=== PATIENT | female | born 1990 | race Caucasian/White ===

== ENCOUNTER 2018-11-23 20:40 | Outpatient (CLI) | payer OTHER ==
[~2018-11-23] VITALS: Ht 160 cm; Wt 101.9 kg
[2018-11-23 21:06] VITALS: BP 111/63; PULSE 104; RESP 18; Ht 160 cm; Wt 101.9 kg
[2018-11-23] MEDS ORDERED: NPH,100I5 SQ (21:23)
[2018-11-23] MEDS ORDERED: FER325 PO (21:23)
[2018-11-23] MEDS ORDERED: PREN-93 PO (21:23)
[2018-11-23] MEDS ORDERED: ONDANSETRON 4 MG INJ IV STA (21:49)
[2018-11-23] MEDS ORDERED: LACTATED RINGER'S 1,000 ML IV SCH (22:00)
[2018-11-23] MEDS ORDERED: LACTATED RINGER'S 1,000 ML IV ONE (22:00)
[2018-11-23] MEDS ORDERED: ACETAMINOPHEN 1000MG/100ML IV 100 ML IVPB ONE (22:00)
[2018-11-24] MEDS ORDERED: ACET500C5 PO (05:31)
[2018-11-24] MEDS ORDERED: METO10TA92 PO (05:31)
--- NOTE | 2018-11-24 07:22 | PN ---
Triage Information Date/Time Late entry note for November 23, 2018 Reason for visit: Weeks of Gestation 25 weeks and 3 days /Para 3 para 2 Diabetes: none Hypertention: none Additional information 28-year-old G3, P2 with IUP at 25 weeks and 3 days presents with complaint of nausea and vomiting, headache since 4 hours ago prior to [facility]. She denies any fever, chills, leaking of fluid, vaginal bleeding, decreased movement. Past medical history significant for history of type 2 diabetes currently on insulin for management of diabetes during . She denies any fever or chills. She reports history of migraine headache in the past but had not reported any migraine headache for a long time. Patient received IV Tylenol in triage and still complaining of persistent headache with some vision changes. She denies right upper quadrant pain or epigastric pain. Denies any history of hypertension urine . Blood pressure during monitoring in triage had been all normal range. Objective Vital Signs Date Temp Pulse Resp B/P (MAP) Pulse Ox O2 O2 Flow FiO2 Time Delivery Rate 11/23/18 99.5 104 18 111/63 Room Air 21:06 (79) Heart Rate: 130's Heart Rate Comments Appropriate for gestational age and category 1 No contraction on the monitor Exam VS - Last 72 Hours, by Label Date Temp Pulse Resp B/P (MAP) Pulse Ox O2 O2 Flow FiO2 Time Delivery Rate 11/23/18 99.5 104 18 111/63 Room Air 21:06 (79) Laboratory Tests Test 11/23/18 22:25 11/24/18 00:10 White Blood Count 14.3 H Red Blood Count 4.28 Hemoglobin 12.6 Hematocrit 35.6 L Mean Corpuscular Volume 83.2 Mean Corpuscular Hemoglobin 29.4 Mean Corpuscular Hemoglobin Concent 35.4 Red Cell Distribution Width 12.6 Platelet Count 329 Mean Platelet Volume 10.2 Immature Granulocytes % 0.400 Neutrophils % 87.7 H Lymphocytes % 8.8 L Monocytes % 3.0 Eosinophils % 0.0 Basophils % 0.1 Nucleated Red Blood Cells % 0.0 Immature Granulocytes # 0.060 H Neutrophils # 12.5 H Lymphocytes # 1.3 Monocytes # 0.4 Eosinophils # 0.0 Basophils # 0.0 Nucleated Red Blood Cells # 0.0 Sodium Level 138 Potassium Level 3.2 L Chloride Level 105 Carbon Dioxide Level 20 L Anion Gap 13 Blood Urea Nitrogen 11 Creatinine 0.32 L Est Glomerular Filtrat Rate mL/min > 60 Glucose Level 131 Hemoglobin A1c 7.8 H Calcium Level 9.1 Total Bilirubin 0.3 Direct Bilirubin 0.00 Indirect Bilirubin 0.3 Aspartate Amino Transf (AST/SGOT) 15 Alanine Aminotransferase (ALT/SGPT) 9 L Alkaline Phosphatase 90 Total Protein 7.1 Albumin 3.8 Globulin 3.30 H Albumin/Globulin Ratio 1.15 Urine Color YELLOW Urine Clarity SLIGHTLY CLOUDY A Urine pH 5.0 Urine Specific [place] 1.032 H Urine Ketones 2+ H Urine Nitrite NEGATIVE Urine Bilirubin NEGATIVE Urine Urobilinogen NEGATIVE Urine Leukocyte Esterase NEGATIVE Urine Microscopic RBC 1 Urine Microscopic WBC 2 Urine Squamous Epithelial Cells FEW Urine Bacteria FEW A Urine Mucus FEW A Urine Hemoglobin NEGATIVE Urine Glucose 1+ H Urine Total Protein 1+ H Appearance: Alert and oriented x4 appears to be in moderate to severe distress. Abdomen: Soft, gravid, fundal height consider gestational age, no tenderness, no rebound tenderness, no guarding, no rigidity NST: Appropriate for gestational age and category 1 Neuro exam: Examination of all 12 cranial nerves within normal limits Results/Medications Result Diagram: 11/23/18222411/23/182224 Results 24 hrs Laboratory Tests Test 11/23/18 22:25 11/24/18 00:10 White Blood Count 14.3 H Red Blood Count 4.28 Hemoglobin 12.6 Hematocrit 35.6 L Mean Corpuscular Volume 83.2 Mean Corpuscular Hemoglobin 29.4 Mean Corpuscular Hemoglobin Concent 35.4 Red Cell Distribution Width 12.6 Platelet Count 329 Mean Platelet Volume 10.2 Immature Granulocytes % 0.400 Neutrophils % 87.7 H Lymphocytes % 8.8 L Monocytes % 3.0 Eosinophils % 0.0 Basophils % 0.1 Nucleated Red Blood Cells % 0.0 Immature Granulocytes # 0.060 H Neutrophils # 12.5 H Lymphocytes # 1.3 Monocytes # 0.4 Eosinophils # 0.0 Basophils # 0.0 Nucleated Red Blood Cells # 0.0 Sodium Level 138 Potassium Level 3.2 L Chloride Level 105 Carbon Dioxide Level 20 L Anion Gap 13 Blood Urea Nitrogen 11 Creatinine 0.32 L Est Glomerular Filtrat Rate mL/min > 60 Glucose Level 131 Hemoglobin A1c 7.8 H Calcium Level 9.1 Total Bilirubin 0.3 Direct Bilirubin 0.00 Indirect Bilirubin 0.3 Aspartate Amino Transf (AST/SGOT) 15 Alanine Aminotransferase (ALT/SGPT) 9 L Alkaline Phosphatase 90 Total Protein 7.1 Albumin 3.8 Globulin 3.30 H Albumin/Globulin Ratio 1.15 Urine Color YELLOW Urine Clarity SLIGHTLY CLOUDY A Urine pH 5.0 Urine Specific [place] 1.032 H Urine Ketones 2+ H Urine Nitrite NEGATIVE Urine Bilirubin NEGATIVE Urine Urobilinogen NEGATIVE Urine Leukocyte Esterase NEGATIVE Urine Microscopic RBC 1 Urine Microscopic WBC 2 Urine Squamous Epithelial Cells FEW Urine Bacteria FEW A Urine Mucus FEW A Urine Hemoglobin NEGATIVE Urine Glucose 1+ H Urine Total Protein 1+ H Disposition: Discharge Assessment/Plan 28-year-old with IUP at 25 weeks and 3 days Persistent headache, associated with nausea and vomiting, no obstetrical problem at this point No evidence of PIH Nausea and vomiting , resolved with antiemetic Headache persistent and severe, no neurological symptoms, headache persistent although the patient received IV Tylenol and hydration Patient will be sent to emergency room for further evaluation Patient has been monitored with serial blood pressure check. Blood pressures during monitoring are all normal range. Patient discharged to emergency room for evaluation. Discussed with the patient if discharged from the emergency room to be seen by her primary OB within 24 to 48 hours after discharge from the hospital Strict labor precautions discussed with the patient as well as kick count and follow-up for her OB appointments discussed. Patient verbalized understanding. All questions were answered to patient's best satisfaction ODLAYS ZAMORA MD November 24, 2018 07:22
== END 2018-11-24 01:18 | disposition home or self-care (01) ==
LOC: OBT 20:40 → L-D 20:42 → OBT 11-24 01:18
PROVIDERS: ATTEND Specialist
DX: O26.892 Other specified pregnancy related conditions, second trimester (principal); R51 Headache; O21.9 Vomiting of pregnancy, unspecified; O24.912 Unspecified diabetes mellitus in pregnancy, second trimester; Z79.4 Long term (current) use of insulin; Z3A.25 25 weeks gestation of pregnancy
CPT/HCPCS: 36415; 76815; 76817; 80053; 81001; 83036; 85025; 96360; 96361; J0131; J2405; J7120; Z7500; Z7610; G0463

== ENCOUNTER 2018-11-24 01:24 | Emergency (ER) | payer OTHER ==
[~2018-11-24] VITALS: Ht 160 cm; Wt 102.3 kg
[~2018-11-24 01:24] MED LIST: FER325 PO; NPH,100I5 SQ; PREN-93 PO
[2018-11-24 01:29] VITALS: Ht 160 cm; Wt 102.3 kg
[2018-11-24] MEDS ORDERED: SOD CHLORIDE 0.9% 1,000 ML IV STA (02:45)
[2018-11-24] MEDS ORDERED: METOCLOPRAMIDE 10 MG INJ IV STA (02:45)
[2018-11-24] MEDS ORDERED: ACETAMINOPHEN 500 MG TAB PO STA (04:28)
[2018-11-24 04:43] VITALS: BP 116/54; PULSE 98; RESP 18
[2018-11-24] MEDS ORDERED: ACET500C5 PO (05:31)
[2018-11-24] MEDS ORDERED: METO10TA92 PO (05:31)
--- NOTE | 2018-11-24 08:00 | ERD ---
ER Documentation Chief Complaint Chief Complaint abd pain/nv x 1 day, states 25 weeks . came from ob HPI Patient is a 28-year-old female with PMHX of DM Type 2, insulin dependent, G3, P 2, approximately 25 weeks , presents ER for concerns of headache, nausea and vomiting which started 4 hours prior to arrival. Patient was referred to the ER by [facility] Dr. Bernard as her headache persisted after undergoing OB work- up. Patient states her current pain level is a 7 out of 10. She states the pain to be throughout her head. Patient states she has had migraine headaches in the past however this one is lasting longer. She denies any fevers, chills, photophobia, phonophobia, blurry vision, unilateral weakness, slurred speech, difficulty ambulating. Patient denies any chest pain or shortness of breath. Patient denied falls or trauma. Patient denies any abdominal pain, pelvic pain, fluid loss, vaginal bleeding, changes in movement. Patient denies any URI like symptoms at this time. Patient denies any UTI symptoms. Patient states her OBGYN is Dr. Pina. ROS All systems reviewed and are negative except as per history of present illness. Medications Home Meds Active Scripts Metoclopramide* (Reglan*) 10 Mg Tablet, 10 MG PO Q6 PRN for NAUSEA AND/OR VO MITING, #10 TAB Prov:AGUEDA HOSKINS PA-C 11/24/18 Acetaminophen* (Tylophen*) 500 Mg Capsule, 1 CAP PO Q6H PRN for PAIN AND OR ELEVATED TEMP, #20 CAP Prov:AGUEDA HOSKINS PA-C 11/24/18 Reported Medications NPH, Human Insulin Isophane (Humulin N Kwikpen) 100 Unit/1 Ml Insuln.pen, 1 UNIT SQ, EA 11/23/18 Ferrous Sulfate* (Ferrous Sulfate*) 325 Mg Tabec, 325 MG PO DAILY, TAB 11/23/18 Vit No.124/Iron/FA ( Vitamin Tablet) 1 Each Tablet, 1 EACH PO, TAB 11/23/18 Allergies Allergies: Coded Allergies: No Known Allergy (Unverified , 11/23/18) PMhx/Soc Medical and Surgical Hx: pt denies Medical Hx History of Surgery: Yes (C SECTION) Hx Alcohol Use: No Hx Substance Use: No Hx Tobacco Use: No Smoking Status: Never smoker FmHx Family History: No diabetes, No coronary disease, No other Physical Exam Vitals Vital Signs Date Temp Pulse Resp B/P (MAP) Pulse Ox O2 O2 Flow FiO2 Time Delivery Rate 11/24/18 98.9 98 18 116/54 98 Room Air 04:43 (74) 11/24/18 99.4 102 20 147/80 97 01:29 (102) Physical Exam GENERAL: Well-developed, well-nourished female. Appears in no acute distress. Speaking in full sentences. HEAD/FACE: Normocephalic, atraumatic. No deformities or ecchymosis. No facial asymmetry. EYE: Pupils equal, round, and reactive to light. EOMs intact. No conjunctival erythema. No eye discharge. ENT: External ear without any masses or tenderness. Auditory canals clear bilaterally. TM visualized bilaterally, non-erythematous, non-bulging. Nasal mucosa pink with no discharge. Oropharynx is pink without any tonsillar erythema or exudates. No uvula deviation. No kissing tonsils. NECK: Supple. No meningismus. Normal ROM of the neck. LUNG: Clear to auscultation bilaterally. No rhonchi, wheezing, rales or coarse breath sounds. HEART: Regular rate and rhythm. No murmurs, rubs or gallops. ABDOMEN: Gravid abdomen. EXTREMITIES: Equal pulses bilaterally. No peripheral clubbing, cyanosis or edema. No unilateral leg swelling. NEUROLOGIC: Alert and oriented x3, cooperative. Mood and affect appropriate to situation. Cranial nerves II through XII are grossly intact. Normal speech. Motor exam: 5/5 strength in upper and lower extremities. Sensory exam: Sensation intact to light touch on all four extremities. Cerebellar function exam: Rapid alternating movements intact. Steady gait. No pronator drift. SKIN: Normal color. Warm and dry. No rashes or lesions. Results 24 hrs Laboratory Tests Test 11/24/18 04:06 11/24/18 05:27 Urine Color YELLOW Urine Clarity SLIGHTLY CLOUDY Urine pH 5.0 Urine Specific [place] 1.026 Urine Ketones 2+ mg/dL Urine Nitrite NEGATIVE mg/dL Urine Bilirubin NEGATIVE mg/dL Urine Urobilinogen NEGATIVE mg/dL Urine Leukocyte Esterase NEGATIVE [place]/ul Urine Microscopic RBC 1 /HPF Urine Microscopic WBC 2 /HPF Urine Squamous Epithelial Cells FEW /HPF Urine Hemoglobin NEGATIVE mg/dL Urine Glucose 3+ mg/dL Urine Total Protein 1+ mg/dl Bedside Glucose 171 mg/dL Current Medications Medications Dose Sig/Liz Start Time Status Last (Trade) Ordered Route PRN Stop Time Admin Dose Reason Admin Sodium 1,000 ml @ Q1H STAT 11/24/18 DC 11/24/18 Chloride 1,000 mls/hr IV 02:45 11/24/18 02:45 04:40 10 mg ONCE STAT 11/24/18 DC 11/24/18 Metoclopramid IV 02:45 11/24/18 04:08 e HCl 02:47 (Reglan) 500 mg ONCE STAT 11/24/18 DC 11/24/18 Acetaminophen PO 04:28 11/24/18 04:39 (Tylenol 04:29 Tab) Procedures/MDM Review of the patient's medical records show the patient was seen on OB for prior ER arrival. On OB floor patient had blood work and UA obtained. CBC showed a WBC count of 14.3. Hemoglobin and hematocrit within normal limits. Elevated WBC count likely due to recent vomiting and state. CMP showed no severe electrolyte abnormalities except for glucose of 131, potassium 3.2, bicarb of 20, creatinine 1.32. AST noted to be 15, ALT of 9. Hemoglobin A1c was noted to be 7.8. UA did show 2+ ketones, 3+ glucose and 1+ protein. Patient was given Zofran IV, Tylenol IV, and Lactated Ringer's on OB floor. Limited OB US showed single live intrauterine gestation andd 1. The MVP is 7 cm. 2. The cervix is closed and measures 4 cm. Patient arrived to the ED with IV in place. MEDICAL DECISION MAKING: Patient is a 28-year-old female, G3, P2, presents the ER for concerns of a headache, nausea and vomiting which started prior to arrival seen and evaluated by [facility] [employer] team given that patient was patient was above 20 weeks . Patient was referred to the ER by OBGYN Dr. Bernard as her headache persisted. Patient does have a history of migraines. Vital signs were reviewed. Patient was afebrile. Patient was not hypoxic. Initial pulse was noted to be 102 bpm. Initial BP was noted to be 147/80. Patient's neuro exam was completely normal. Patient had no focal neurological deficits. Low suspicion for TIA or CVA at this time. As discussed above. I did review the patient's blood work which was obtained prior to ER arrival. Patient's CBC did show slightly elevated WBC count. Likely due to recent vomiting in state. No evidence of severe anemia. Patient did not require blood transfusion. CMP did show slightly decreased potassium of 3.2. Patient was encouraged to eat bananas which will correct her slight hypokalemia. Patient's glucose was noted to be 131 on OB floor patient's bicarb was and then 171 here in the ER. Patient's bicarb was noted to be 20. Patient did have 2+ ketones in her urine however there is no signs of DKA at this time. UA also showed 1+ glucose and 1+ protein. Patient was advised to continue strict DM medication compliance. I did speak with DAMASO PhillipsDebby, who stated that she does not have concerns for an OB related emergencies at this time including preclampsia and eclampsia. Patient was given Tylenol p.o. here in the ER given the previous dose was over 5 hours ago. Patient was also given Reglan. Upon reexamination, patient reported improvement in symptoms. Given state and associated risks of CT imaging, CT brain was deferred as patient had improvement in symptoms. Patient was advised to follow-up with her [employer] Dr. Pina in the next 1 to 2 days. Patient was agreeable with this plan. At this time, patient presentation is most consistent with headache, nausea and vomiting in the setting of . Low suspicion for intra encephalitis, meningitis, cranial hemorrhage, this TIA, CVA, temporal arteritis, benign intracranial hypertension, intracranial mass, glaucoma, sinusitis, ACS, DKA or sepsis. Patient's vital signs were reassessed and were WNL prior to discharge. Patient was nontoxic, non-ill appearing prior to discharge with steady gait. PRESCRIPTIONS: Tylenol, Reglan DISCHARGE: At this time, patient is stable for discharge and outpatient management. I have encouraged the patient to hydrate well. I have instructed the patient to follow- up with his/her primary care physician in 1-2 days. If symptoms persist, patient may need to see a specialist for further examinations and testing. I have instructed the patient to promptly return to the ER at any time for any new or worsening symptoms including increased increased pain, fever, nausea, vomiting, numbness, neck stiffness, visual changes, weakness or LOC. The patient and/or family expressed understanding of and agreement with this plan. All questions were answered. Home care instructions were provided. Disclaimer: Inadvertent spelling and grammatical errors are likely due to EHR/dictation software use and do not reflect on the overall quality of patient care. Also, please note that the electronic time recorded on this note does not necessarily reflect the actual time of the patient encounter. Departure Diagnosis: Primary Impression: Headache Headache type: unspecified Headache chronicity pattern: unspecified pattern Intractability: not intractable Qualified Codes: R51 - Headache Additional Impressions: Weeks of gestation: unspecified Qualified Codes: Z34.90 - Encounter for supervision of normal , unspecified, unspecified trimester Diabetes in Diabetes in type: unspecified Trimester: unspecified trimester Qualified Codes: O24.919 - Unspecified diabetes mellitus in , unspecified trimester Condition: Fair Patient Instructions: Self-Care for Headaches Referrals: [facility] YOU HAVE RECEIVED A MEDICAL SCREENING EXAM AND THE RESULTS INDICATE THAT YOU DO NOT HAVE A CONDITION THAT REQUIRES URGENT TREATMENT IN THE EMERGENCY DEPARTMENT. FURTHER EVALUATION AND TREATMENT OF YOUR CONDITION CAN WAIT UNTIL YOU ARE SEEN IN YOUR DOCTORS OFFICE WITHIN THE NEXT 1-2 DAYS. IT IS YOUR RESPONSIBILITY TO MAKE AN APPOINTMENT FOR FOLOW-UP CARE. IF YOU HAVE A PRIMARY DOCTOR --you should call your primary doctor and schedule an appointment IF YOU DO NOT HAVE A PRIMARY DOCTOR YOU CAN CALL OUR PHYSICIAN REFERRAL HOTLINE AT IF YOU CAN NOT AFFORD TO SEE A PHYSICIAN YOU CAN CHOSE FROM THE FOLLOWING [facility] [address] [facility]. [facility] [address] [facility] [address] [facility] [facility] [address] [facility]. [facility] [address] [facility]. [facility]. [address] [facility] YOU HAVE RECEIVED A MEDICAL SCREENING EXAM AND THE RESULTS INDICATE THAT YOU DO NOT HAVE A CONDITION THAT REQUIRES URGENT TREATMENT IN THE EMERGENCY DEPARTMENT. FURTHER EVALUATION AND TREATMENT OF YOUR CONDITION CAN WAIT UNTIL YOU ARE SEEN IN YOUR DOCTORS OFFICE WITHIN THE NEXT 1-2 DAYS. IT IS YOUR RESPONSIBILITY TO MAKE AN APPOINTMENT FOR FOLOW-UP CARE. IF YOU HAVE A PRIMARY DOCTOR --you should call your primary doctor and schedule and appointment IF YOU DO NOT HAVE A PRIMARY DOCTOR YOU CAN CALL OUR PHYSICIAN REFERRAL HOTLINE AT . IF YOU CAN NOT AFFORD TO SEE A PHYSICIAN YOU CAN CHOSE FROM THE FOLLOWING [facility] IN[facility]UTIONS: [facility] [address] [place] [address] [facility] [address] [place] [address] [facility] [address] [place] [address] Additional Instructions: Follow-up with your [employer] [employer] Dr. Pina. Call your primary care doctor TOMORROW for an appointment during the next 1-2 days.See the doctor sooner or return here if your condition worsens before your appointment time. AGUEDA HOSKINS PA-C November 24, 2018 07:50
== END 2018-11-24 05:43 | disposition home or self-care (01) ==
LOC: FTE 01:24
DX: O26.892 Other specified pregnancy related conditions, second trimester (principal); R51 Headache; O24.112 Pre-existing type 2 diabetes mellitus, in pregnancy, second trimester; E11.9 Type 2 diabetes mellitus without complications; Z3A.25 25 weeks gestation of pregnancy; Z79.4 Long term (current) use of insulin
CPT/HCPCS: 81001; 82962; 96374; J2765; J7030; Z7502; Z7610

== ENCOUNTER 2019-02-23 05:39 | Inpatient (IN) | payer OTHER ==
[~2019-02-23] VITALS: Ht 162.6 cm; Wt 109.1 kg
[~2019-02-23 05:39] MED LIST changes: +ACET500C5 PO; +METO10TA92 PO
[2019-02-23] MEDS ORDERED: MISOPROSTOL 200 MCG TAB PR PRN ×2 (06:00→08:00)
[2019-02-23] MEDS ORDERED: OXYTOCIN 30 UNITS/LR 500 ML IV SCH (06:00)
[2019-02-23] MEDS ORDERED: CARBOPROST 250 MCG INJ IM PRN (06:00)
[2019-02-23] MEDS ORDERED: AMPICILLIN 2 GM/NS (PMX) 100 ML IV SCH (06:00)
[2019-02-23] MEDS ORDERED: OXYTOCIN 30 UNITS/LR 500 ML IV PRN (06:00)
[2019-02-23] MEDS ORDERED: METHYLERGONOVINE 0.2 MG INJ IM PRN (06:00)
[2019-02-23 06:20] VITALS: Ht 162.6 cm; Wt 109.1 kg
[2019-02-23] MEDS: LACTATED RINGER'S 1,000 ML IV SCH ×2 (06:44→15:33)
[2019-02-23] MEDS ORDERED: CEFAZOLIN 2 GM/50 ML (PMX) 50 ML IVPB SCH (07:00)
[2019-02-23] MEDS ORDERED: LACTATED RINGER'S 1,000 ML IV ONE (07:21)
--- NOTE | 2019-02-23 07:21 | PREAC ---
Date/Time of Note Date/Time of Note DATE: 02/23/19 TIME: : Anesthesia Eval and Record Evaluation Time Pre-Procedure Interview DATE: 02/23/19 TIME: 07:19 Age 28 Sex female NPO: 8 hrs Preoperative diagnosis intrauterine Planned procedure repeat c section Past Medical History Past Medical History: Includes Endo: Diabetes Surgery & Anesthesia Issues No known issue Meds Anticoagulation: No Beta Gabriel within 24 hr: No Reason Beta Gabriel not given: Pt. not on B-Gabriel Active Scripts Metoclopramide* (Reglan*) 10 Mg Tablet, 10 MG PO Q6 PRN for NAUSEA AND/OR VOMITING, #10 TAB Prov:AGUEDA HOSKINS PA-C 11/24/18 Acetaminophen* (Tylophen*) 500 Mg Capsule, 1 CAP PO Q6H PRN for PAIN AND OR ELEVATED TEMP, #20 CAP Prov:AGUEDA HOSKINS PA-C 11/24/18 Reported Medications NPH, Human Insulin Isophane (Humulin N Kwikpen) 100 Unit/1 Ml Insuln.pen, 1 UNIT SQ, EA 11/23/18 Ferrous Sulfate* (Ferrous Sulfate*) 325 Mg Tabec, 325 MG PO DAILY, TAB 11/23/18 Vit No.124/Iron/FA ( Vitamin Tablet) 1 Each Tablet, 1 EACH PO, TAB 11/23/18 Current Medications Lactated Ringer's 1,000 ml @ 125 mls/hr Q8H IV Last administered on 02/23/19at 06:44; Admin Dose 125 MLS/HR; Start 02/23/19 at 05:54 Oxytocin/Lactated Ringer's 500 ml @ 125 mls/hr POST IV ; Start 02/23/19 at 06:00 Oxytocin/Lactated Ringer's 500 ml @ 0 mls/hr ONCE PRN IV .VAGINAL BLEEDING; Start 02/23/19 at 06:00 Methylergonovine Maleate (Methergine) 0.2 mg ONCE PRN IM .VAGINAL BLEEDING; Start 02/23/19 at 06:00 Carboprost Tromethamine (Hemabate) 250 mcg ONCE PRN IM .VAGINAL BLEEDING; Start 02/23/19 at 06:00 Misoprostol (Cytotec) 1,000 mcg ONCE PRN FL .VAGINAL BLEEDING; Start 02/23/19 at 06:00 Cefazolin Sodium/ Dextrose 50 ml @ 100 mls/hr ONCE IVPB ; Start 02/23/19 at 07:00 Meds reviewed: Yes Allergies Coded Allergies: No Known Allergy (Unverified , 11/23/18) Allergies Reviewed: Yes Labs/Studies Labs Reviewed: Reviewed by anesthesiologist (pending and will be reviewed ) Result Diagram: 02/23/19 0607 Laboratory Tests 02/23/19 06:07 test: N/A Pre-procedure Exam Airway: Adequate mouth opening, Adequate thyromental dist Mallampati: Mallampati II Teeth: Normal Lung: Normal Heart: Normal ASA Physical Status ASA physical status: 2 Emergency: None Planned Anesthetic Neuraxial: Spinal Planned Pain Management Sub-arachniod narcotics, Parenteral pain med Pre-operative Attestations Prior to commencing anesthesia and surgery, the patient was re-evaluated, there was verification of: *The patient's identity *The results of appropriate recent lab work and preoperative vital signs *The above evaluation not changing prior to induction *Anesthetic plan, risk benefits, alternative and complications discussed with patient/family; questions answered; patient/family understands, accepts and wishes to proceed. DAVIDA VILLA MD Feb 23, 2019 07:21
--- NOTE | 2019-02-23 07:29 | HP ---
Date/Time of Note Date/Time of Note DATE: 02/23/19 TIME: 07:25 OB - History Hx of Present Free Text/Dictation 28-year-old 3 para 2 with regnancy at 38 weeks and 4 days with due date March 05, 2019 with type 2 diabetes. Patient with history of previous delivery, who desires to have repeat delivery. I discussed with the patient the risks, benefits, indications, and alternatives of procedure including but not limited to risks of infection, bleeding, damage to other organs, bowel, bladder, hernia formation, scar formation, possibility of blood transfusion, possible need for emergency hysterectomy. She was allowed to ask questions. All her questions were answered. Informed consent has been obtained. Patient reports she had diabetes since the of her last child and she was controlling her diabetes with insulin prior to as well. Patient is followed by welt treater Dr. antoine. Her hemoglobin A1c on initial visit on 09/27/2018 was 8.2. On October 31 hemoglobin A1c was 7.4. On December 07 he will A1c was 7.8. Patient has appointment with welt treater tomorrow I advised patient to cancel appointment and make appointment for early next week. Patient is also Rh- and she received RhoGam. Care: [facility] Ultrasounds: Normal mid trimester US Obstetrical Complications: Other (Diabetes, obesity, Rh-, history of previous ) Medical Complications: Other (Diabetes, obesity) Past Family/Social History * Past Medical, Surgical, Family and Obstetric Histories reviewed from chart. OB Admission Exam Physical Exam HEENT: WNL Heart: Rhythm Normal Lungs: Clear, Equal Abdomen: WNL Extremities: Normal Reflexes: Normal Last 72 hours Lab Results CBC & BMP 02/23/19 06:07 OB Assessment/Plan Other Assessment: at 38 weeks and 2 days. History of previous delivery desires repeat delivery. Diabetes type 2 on insulin. Obesity Plan: Section RENÉ HARRIS MD Feb 23, 2019 07:29
[2019-02-23] MEDS ORDERED: FAMOTIDINE 20 MG INJ IV ONE (07:30)
[2019-02-23] MEDS ORDERED: METOCLOPRAMIDE 10 MG INJ IV ONE (07:30)
[2019-02-23] MEDS ORDERED: CITRIC ACID/NA CITRATE 30 ML CUP PO ONE (07:30)
[2019-02-23] MEDS ORDERED: LACTATED RINGER'S 1,000 ML IV SCH (07:44)
[2019-02-23] MEDS ORDERED: DEXTROSE 50% 50 ML SYRINGE IV PRN ×2 (08:00)
[2019-02-23] MEDS ORDERED: OXYCODONE/ACETAMINOPHEN (5/325) TAB PO PRN (08:00)
[2019-02-23] MEDS ORDERED: NPH, HUMAN INSULIN ISOPHANE 3ML VIAL SC ONE (08:00)
[2019-02-23] MEDS ORDERED: NA PHOSPHATE/BIPHOS 133 ML ENEMA PR PRN (08:00)
[2019-02-23] MEDS ORDERED: INSULIN REGULAR, HUMAN 100 UNIT/1 ML 3ML VIAL SC ONE (08:00)
[2019-02-23] MEDS ORDERED: GLUCOSE GEL 15 GRAM TUBE PO PRN ×2 (08:00)
[2019-02-23] MEDS ORDERED: GLUCAGON 1 MG INJ IM PRN (08:00)
[2019-02-23] MEDS ORDERED: GLUCOSE GEL 15 GRAM TUBE BUCCAL PRN (08:00)
[2019-02-23] MEDS ORDERED: NPH, HUMAN INSULIN ISOPHANE 3ML VIAL SC SCH (08:00)
[2019-02-23] MEDS ORDERED: morphine SULFATE/PF (10 MG/10 ML) INJ ONE (08:13)
[2019-02-23] MEDS ORDERED: OXYTOCIN 30 UNITS/LR 500 ML BAG IV ONE (08:13)
[2019-02-23] MEDS ORDERED: EPHEDrine 25 MG/5 ML SYG ONE (08:13)
[2019-02-23] MEDS ORDERED: PHENYLephrine (100 MCG/ML) 10ML SYG ONE (08:23)
[2019-02-23] MEDS ORDERED: ONDANSETRON 4 MG INJ ONE (08:59)
[2019-02-23] MEDS ORDERED: HYDROmorphONE 1 MG/5 ML IV SYRINGE IV PRN ×3 (09:30)
[2019-02-23] MEDS ORDERED: PROCHLORPERAZINE 10 MG INJ IV PRN (09:30)
[2019-02-23] MEDS ORDERED: MEPERIDINE 25 MG INJ IV PRN (09:30)
[2019-02-23] MEDS ORDERED: FENTAnyl 50 MCG/ML VIAL IV PRN (09:30)
[2019-02-23] MEDS ORDERED: KETOROLAC 30 MG INJ IV PRN (09:30)
[2019-02-23] MEDS ORDERED: ONDANSETRON 4 MG INJ IV PRN ×2 (09:30→10:00)
[2019-02-23] MEDS ORDERED: DIPHENHYDRAMINE 50 MG INJ IV PRN (09:30)
--- NOTE | 2019-02-23 09:36 | PAC ---
Date/Time of Note Date/Time of Note DATE: 02/23/19 TIME: 09:36 Post-Anesthesia Notes Post-Anesthesia Note Activity: WNL Respiratory function: WNL Cardiovascular function: WNL Mental status: Baseline Pain reasonably controlled: Yes Hydration appropriate: Yes Nausea/Vomiting absent: Yes Comments BP: 125/74 HR: 83 RR: 15 T: 98 SaO2: 98% DAVDIA VILLA MD Feb 23, 2019 09:36
--- NOTE | 2019-02-23 09:44 | OPR ---
Date/Time of Note Date/Time of Note DATE: 02/23/19 TIME: 09:42 Operative Report Procedure Date: Feb 23, 2019 Preoperative Diagnosis at 38 weeks and 4 days. History of previous delivery Desires repeat delivery Macrosomia and polyhydramnios Diabetes on insulin type II Postoperative Diagnosis Same Operation/Procedure Performed Repeat delivery Surgeon Kenneth Pina MD [facility] Att[facility] Dr. Bernard Anesthesia Type: spinal Estimated Blood Loss: other (700 mL) Transfusion none Specimen None Grafts/Implants none Tubes/Drains Butler catheter Complications none Pt Condition Post Procedure: stable Disposition: PACU Procedure Description The risks, benefits, indications, alternatives of procedure including, but not limited to risk of infection, bleeding, damage to other organs, bowel, bladder, hernia formation, scar formation, possibility of blood transfusions discussed with patient. She was allowed to ask questions. All her questions were answered. Informed consent was obtained. DESCRIPTION OF PROCEDURE: She was taken to the operating room. Spinal anesthesia was induced. She was prepped and draped in the usual sterile fashion. Surgical time out one. Anesthesia was tested to be adequate. With permission from anesthesiologist, a knife was used to make a Pfannenstiel skin incision. The incision was taken down in layers. The fascia was cut, undermined and from the underlying muscle using sharp and blunt dissection. All the bleeders were cauterized. Peritoneum was entered bluntly. A low transverse incision was developed over the uterus. Amniotic fluid was clear and adequate. A viable in vertex presentation was delivered without any difficulty. The cord was clamped and cut, handed to awaiting team. Placenta was then delivered. Uterus was exteriorized, wrapped around a moist lap. Inside uterus was cleaned using a dry lap. All residual membranes were removed. The uterine incision was then closed using #1 Monocryl in 2 layers. The uterus was inserted back inside the abdominal cavity. Irrigation was done carefully. Careful evaluation of the uterine incision revealed no further bleeding. The peritoneum and rectus muscles and fascia were evaluated. All bleeders cauterized. Peritoneum was closed using 2-0 Monocryl. At this time, the count was correct. Rectus muscle was reapproximated using 2-0 Monocryl. Rectus fascia was closed using # 1 PDS. Subcutaneous tissue was cleaned and irrigated. All bleeders cauterized and the skin closed using 4-0 Monocryl. All counts correct. KENNETH PINA MD Feb 23, 2019 09:44
[2019-02-23] MEDS ORDERED: HYDROmorphONE 0.5 MG/0.5 ML SYG IV PRN ×2 (10:00)
[2019-02-23] MEDS ORDERED: NALOXONE (0.4 MG/ML) INJ IV PRN (10:00)
[2019-02-23] MEDS ORDERED: IBUPROFEN 600 MG TAB PO SCH (12:00)
[2019-02-23 13:00] VITALS: BP 110/61; PULSE 82; RESP 20
[2019-02-23] MEDS: INSULIN ASPART [NOVOLOG] 3 ML PEN SC SCH ×4 (13:58→21:16)
[2019-02-23] MEDS: SENNA/DOCUSATE NA (8.6MG/50MG) TAB PO SCH ×2 (14:00→21:22)
[2019-02-23 16:00] VITALS: BP 98/65; PULSE 89; RESP 20
[2019-02-23] MEDS: DIPHENHYDRAMINE 50 MG INJ IV PRN (18:05)
[2019-02-23] MEDS: KETOROLAC 30 MG INJ IV PRN (19:00)
[2019-02-23 19:50] VITALS: BP 118/72; PULSE 79; RESP 20
[2019-02-23] MEDS: NPH, HUMAN INSULIN ISOPHANE 3ML VIAL SC SCH (19:59)
[2019-02-24] VITALS: BP 110/69; PULSE 71; RESP 19
[2019-02-24] MEDS: LACTATED RINGER'S 1,000 ML IV SCH ×2 (00:51→05:54)
[2019-02-24 04:00] VITALS: BP_SYST 105; PULSE 75; RESP 19
[2019-02-24] MEDS: DIPHENHYDRAMINE 50 MG INJ IV PRN (04:22)
[2019-02-24] MEDS: KETOROLAC 30 MG INJ IV PRN (05:58)
[2019-02-24] MEDS: INSULIN ASPART [NOVOLOG] 3 ML PEN SC SCH ×4 (08:05→21:03)
[2019-02-24 08:15] VITALS: BP 128/73; PULSE 78; RESP 20
[2019-02-24] MEDS: NPH, HUMAN INSULIN ISOPHANE 3ML VIAL SC SCH ×2 (08:41→20:09)
[2019-02-24] MEDS: SENNA/DOCUSATE NA (8.6MG/50MG) TAB PO SCH ×2 (08:44→20:09)
[2019-02-24] MEDS: IBUPROFEN 600 MG TAB PO SCH ×2 (12:18→18:12)
[2019-02-24] MEDS: LANOLIN HPA 1 PKT TOP PRN (12:29)
[2019-02-24] MEDS: OXYCODONE/ACETAMINOPHEN (5/325) TAB PO PRN ×2 (14:00→21:04)
[2019-02-24 15:45] VITALS: BP 92/57; PULSE 70; RESP 20
--- NOTE | 2019-02-24 18:33 | QN ---
Documentation Comment s/p c/s Subjective: no complaint Objective: Afebrile, VSS NAD A&O Abdomen: soft, appropriate tender Incision: no sign of bleeding/infection mild lochia Extremity: 1+ edema bilaterally Assessment: S/p C/S DM, on Insulin Recovering Well Plan: current care RENÉ HARRIS MD Feb 24, 2019 18:33
[2019-02-24 20:00] VITALS: BP 122/75; PULSE 77; RESP 20
[2019-02-25] MEDS: IBUPROFEN 600 MG TAB PO SCH ×4 (00:16→17:55)
[2019-02-25 05:05] VITALS: BP 123/80; PULSE 68; RESP 20
[2019-02-25 08:00] VITALS: BP 130/92; PULSE 69; RESP 18
[2019-02-25] MEDS: NPH, HUMAN INSULIN ISOPHANE 3ML VIAL SC SCH ×2 (08:43→20:19)
[2019-02-25] MEDS: OXYCODONE/ACETAMINOPHEN (5/325) TAB PO PRN ×3 (08:51→20:14)
[2019-02-25] MEDS: SENNA/DOCUSATE NA (8.6MG/50MG) TAB PO SCH ×2 (08:52→20:20)
[2019-02-25] MEDS ORDERED: DIPHENHYDRAMINE 25 MG CAP PO PRN (10:30)
[2019-02-25] MEDS ORDERED: DIPHENHYDRAMINE 1%/ZINC 28.3 GM CR TOP ONE (10:30)
[2019-02-25] MEDS: INSULIN ASPART [NOVOLOG] 3 ML PEN SC SCH ×4 (11:50→21:24)
[2019-02-25 15:59] VITALS: BP 133/82; PULSE 84; RESP 20
--- NOTE | 2019-02-25 20:05 | QN ---
Documentation Comment Postop day #2 Status post repeat Patient stable and afebrile Positive flatus and voiding and tolerating regular diet and ambulating Vital signs stable VS - Last 72 Hours, by Label Date Temp Pulse Resp B/P (MAP) Pulse Ox O2 O2 Flow FiO2 Time Delivery Rate 02/25/19 98.9 84 20 133/82 15:59 (99) 02/25/19 98.0 69 18 130/92 08:00 (105) 02/25/19 97.7 68 20 123/80 Room Air 05:05 (94) 02/24/19 97.9 77 20 122/75 Room Air 20:00 (91) 02/24/19 98.1 70 20 92/57 (69) 15:45 02/24/19 98.2 78 20 128/73 Room Air 08:15 (91) 02/24/19 98.6 75 19 105/ 97 Room Air 04:00 02/24/19 98.5 71 19 110/69 97 Room Air 00:00 (83) 02/23/19 98.7 79 20 118/72 96 Room Air 19:50 (87) 02/23/19 99.1 89 20 98/65 (76) 97 16:00 02/23/19 98.4 82 20 110/61 96 Room Air 13:00 (77) Hematology - 72 Hrs Test 02/23/19 06:07 02/24/19 08:13 Hematocrit 34.4 % (37.0-47.0) L 30.1 % (37.0-47.0) L Hemoglobin 11.6 g/dl (12.0-16.0) L 9.8 g/dl (12.0-16.0) L Mean Corpuscular 27.3 pg (29.0-33.0) L 27.5 pg (29.0-33.0) L Hemoglobin Mean Corpuscular 33.7 g/dl (32.0-37.0) 32.6 g/dl (32.0-37.0) Hemoglobin Concent Mean Corpuscular Volume 80.9 fl (82.0-101.0) L 84.6 fl (82.0-101.0) Mean Platelet Volume 12.5 fl (7.4-10.4) #H 12.4 fl (7.4-10.4) H Platelet Count 236 10^3/UL (140-415) # 199 10^3/UL (140-415) Red Blood Count 4.25 10^6/ul (4.20-5.40) 3.56 10^6/ul (4.20-5.40) L Red Cell Distribution 13.4 % (11.5-14.5) 13.4 % (11.5-14.5) Width White Blood Count 7.5 10^3/ul (4.8-10.8) # 9.6 10^3/ul (4.8-10.8) # Chemistry Test 02/23/19 06:07 02/23/19 07:46 02/23/19 11:12 02/23/19 14:49 Glucose Level 167 mg/dl (70-220) Bedside 127 165 84 Glucose mg/dL (70-220) mg/dL (70-220) mg/dL (70-220) Test 02/23/19 17:55 02/23/19 21:09 02/24/19 08:29 02/24/19 12:16 Bedside 240 212 111 141 Glucose mg/dL (70-220) mg/dL (70-220) mg/dL (70-220) mg/dL (70-220) H Test 02/24/19 18:13 02/24/19 20:55 02/25/19 08:24 02/25/19 12:52 Bedside 150 237 102 167 Glucose mg/dL (70-220) mg/dL (70-220) mg/dL (70-220) mg/dL (70-220) H Test 02/25/19 12:53 02/25/19 17:49 Bedside 175 136 Glucose mg/dL (70-220) mg/dL (70-220) Abdomen soft, fundus firm Incision clean,dry,intact Extremities nontender Assessment and plan Patient stable and doing well Encouraged to ambulate Continue with routine postop care MERCEDES SAAVEDRA MD Feb 25, 2019 20:05
[2019-02-25 20:10] VITALS: BP 136/88; PULSE 75; RESP 18
[2019-02-26] MEDS: IBUPROFEN 600 MG TAB PO SCH ×3 (00:24→12:42)
[2019-02-26 04:03] VITALS: BP 129/71; PULSE 85; RESP 17
[2019-02-26] MEDS: INSULIN ASPART [NOVOLOG] 3 ML PEN SC SCH ×2 (08:05→11:50)
[2019-02-26 08:30] VITALS: BP 115/69; PULSE 73; RESP 17
[2019-02-26] MEDS: NPH, HUMAN INSULIN ISOPHANE 3ML VIAL SC SCH (08:45)
[2019-02-26] MEDS: OXYCODONE/ACETAMINOPHEN (5/325) TAB PO PRN ×2 (08:52→15:30)
[2019-02-26] MEDS: SENNA/DOCUSATE NA (8.6MG/50MG) TAB PO SCH (09:00)
[2019-02-26] MEDS ORDERED: MEASLES,MUMPS,RUBELLA VACCINE INJ SC* ONE (09:00)
[2019-02-26] MEDS ORDERED: DIPHTH/TET/ACEL PERTUSS (ADULT) 0.5 ML VIAL IM* ONE (09:00)
--- NOTE | 2019-02-26 13:26 | QN ---
Documentation Comment POD#3 is stable afebrile tolerates diet No VB +BM +voids VS stable Gen NAD Abd soft NT ND Incision intact Genitalia No blood at Perineum --->Discharge Home --->precautions discussed ANA LAURA GUTIÉRREZ M.D. Feb 26, 2019 13:26
--- NOTE | 2019-02-26 13:27 | DS ---
Date/Time of Note Date/Time of Note DATE: 02/26/19 TIME: 13:26 Discharge Summary Admission/Discharge Info Admit Date/Time Feb 23, 2019 at 05:39 Discharge Date/Time 02/26/2019 Discharge Diagnosis Patient Condition: Good Hospital Course uneventful Home Meds Active Scripts Metoclopramide* (Reglan*) 10 Mg Tablet, 10 MG PO Q6 PRN for NAUSEA AND/OR VOMITING, #10 TAB Prov:AGUEDA HOSKINS PA-C 11/24/18 Acetaminophen* (Tylophen*) 500 Mg Capsule, 1 CAP PO Q6H PRN for PAIN AND OR ELEVATED TEMP, #20 CAP Prov:AGUEDA HOSKINS PA-C 11/24/18 Reported Medications NPH, Human Insulin Isophane (Humulin N Kwikpen) 100 Unit/1 Ml Insuln.pen, 1 UNIT SQ, EA 11/23/18 Ferrous Sulfate* (Ferrous Sulfate*) 325 Mg Tabec, 325 MG PO DAILY, TAB 11/23/18 Vit No.124/Iron/FA ( Vitamin Tablet) 1 Each Tablet, 1 EACH PO, TAB 11/23/18 Primary Care Provider Not On Staff Doctor Pending Labs Laboratory Tests Test 02/25/19 17:49 02/25/19 20:07 02/25/19 21:18 02/26/19 08:17 Bedside 136 161 209 79 Glucose mg/dL (70-220) mg/dL (70-220) mg/dL (70-220) mg/dL (70-220) Test 02/26/19 12:32 Bedside 76 Glucose mg/dL (70-220) ANA LAURA GUTIÉRREZ M.D. Feb 26, 2019 13:27
[2019-02-26] MEDS: LANOLIN HPA 1 PKT TOP PRN (15:23)
--- NOTE | 2019-02-27 17:45 | DELSUM ---
Delivery Summary A-C Datetime Report Generated by CPN: 02/27/2019 17:45 DELIVERY PERSONNEL Child Support Investigator: YoRosa lira MATERNAL INFORMATION Delivery Anesthesia: Spinal Medications in Delivery: SEE ANESTHESIA RECORDS Delivery QBL (ml): 700 Placenta Cultured: No Maternal Complications: Other Other Maternal Complications: uncontrolled diabetes LABOR SUMMARY EDC: 03/05/2019 00:00 No. Babies in Womb: 1 Attempted: No Labor Anesthesia: None LABOR INFORMATION Group B Beta Strep: Not Done Antibiotics # of Doses: 1 Antibiotics Time of Last Dose: 02/23/2019 08:15 Steroids Given: None Reason Steroids Not Administered: Not Applicable MEMBRANES Membranes Rupture Method: Artificial Rupture of Membranes: 02/23/2019 08:55 Length of Rupture (hr): 0.02 Amniotic Fluid Color: Clear Amniotic Fluid Amount: Large Amniotic Fluid Odor: None STAGES OF LABOR Stage 3 hr: 0 Stage 3 min: 2 CSECTION DELIVERY Primary Indication: Repeat Elective Secondary Indication: N/A CSection Urgency: Elective CSection Incidence: Repeat Labor: N/A Elective: N/A CSection Incision: Lower Uterine Transverse BABY A INFORMATION Delivery Date/Time: 02/23/2019 08:56 Method of Delivery: Born in Route : No : N/A Forceps: N/A Vacuum Extraction: N/A Shoulder Dystocia : No SHOULDER DYSTOCIA BABY A Infant Delivery Date/Time: 02/23/2019 08:56 PRESENTATION/POSITION BABY A Presentation: Cephalic Cephalic Presentation: N/A Breech Presentation: N/A PLACENTA INFORMATION BABY A Placenta Delivery Time : 02/23/2019 08:58 Placenta Method of Delivery: Manual Removal Placenta Status: Delivered SCORES BABY A Heart Rate 1 min: >100 bpm Resp Effort 1 min: Good Cry Reflex Irritability 1 min: Cough/Sneeze/Pulls Away Muscle Tone 1 min: Active Motion Color 1 min: Blue/Pale Resuscitation Effort 1 min: Tactile Stimulation SCORE 1 MIN: 8 Heart Rate 5 min: >100 bpm Resp Effort 5 min: Good Cry Reflex Irritability 5 min: Cough/Sneeze/Pulls Away Muscle Tone 5 min: Active Motion Color 5 min: Body [place], Extremit Blue Resuscitation Effort 5 min: Tactile Stimulation SCORE 5 MIN: 9 INFANT INFORMATION BABY A Gestational Age at Delivery: 38.4 Gestational Status: Early Term- 37- 38.6 Weeks Outcome : Liveborn, with signs of life Condition : Stable Sex: Female IDENTIFICATION/MEDS BABY A ID Band Number: [id number] ID Band Location: Right Leg; Left Arm Sensor Applied: Yes Sensor Number: [id number] Sensor Location : Cord Clamp Vitamin K Given : Not Given Erythromycin Given: Not Given WEIGHT/LENGTH BABY A Infant Birthweight (gm): 5050 Infant Weight (lb): 11 Weight (oz): 2 Length (in): 22.00 Length (cm): 55.88 CORD INFORMATION BABY A No. Cord Vessels: 3 Nuchal Cord : N/A Cord Blood Taken: Yes Infant Suction: Mouth; Nose ASSESSMENT BABY A Infant Complications: None Physical Findings at Delivery: Within Normal Limits Respirations: Appears Normal Point Of Care Specialist/ALS Called : No Care By: KAUSHAL TINAJERO Transferred To: Remains with Mother
== END 2019-02-26 17:20 | disposition home or self-care (01) | DRG 787 ==
LOC: L-D 05:39 → PP1 13:30
PROVIDERS: ADMIT Specialist; ATTEND Specialist
PROC: 10D00Z1 Extraction of Products of Conception, Low, Open Approach (ICD-10-PCS; 2019-02-23)
PROC: 10D00Z1 Extraction of Products of Conception, Low, Open Approach (ICD-10-PCS; principal; 2019-02-23 07:30)
DX: O65.5 Obstructed labor due to abnormality of maternal pelvic organs (principal); O24.113 Pre-existing type 2 diabetes mellitus, in pregnancy, third trimester; O99.213 Obesity complicating pregnancy, third trimester; O34.211 Maternal care for low transverse scar from previous cesarean delivery; Z3A.38 38 weeks gestation of pregnancy; Z37.0 Single live birth; O36.63X0 Maternal care for excessive fetal growth, third trimester, not applicable or unspecified; E11.9 Type 2 diabetes mellitus without complications; O40.3XX0 Polyhydramnios, third trimester, not applicable or unspecified; Z79.4 Long term (current) use of insulin
CPT/HCPCS: 82947; 82962; 85025; 85610; 85730; 86592; 86850; 86885; 86900; 86901; 99464; J0690; J1200; J1815; J1885; J2274; J2370; J2405; J2590; J2765; J2790; J7120